=== PATIENT | female | born 1960 | race Caucasian/White ===

== ENCOUNTER 2025-02-12 10:48 | Outpatient (CLI) | payer MEDICARE | END 2025-02-12 10:49 | disposition home or self-care (01) | LOC: BICCT 10:48 | PROVIDERS: ATTEND Internal Medicine | DX: R91.8 Other nonspecific abnormal finding of lung field (principal); I71.21 Aneurysm of the ascending aorta, without rupture | CPT/HCPCS: 71250 ==

== ENCOUNTER 2025-04-18 07:29 | Outpatient (CLI) | payer MEDICARE ==
[2025-04-18 08:04] LABS: Estimated GFR - POC 71.0
[2025-04-18] MEDS ORDERED: Iopamidol 370 76% 100 ML VIAL ONE (14:28)
== END 2025-04-18 07:30 | disposition home or self-care (01) ==
LOC: CT 07:29
PROVIDERS: ATTEND Internal Medicine Cardiovascular Disease
DX: I35.0 Nonrheumatic aortic (valve) stenosis (principal); I77.810 Thoracic aortic ectasia; R91.1 Solitary pulmonary nodule
CPT/HCPCS: 36415; 71275; 82565; Q9967